=== PATIENT | male | born 1960 | race Caucasian/White ===

== ENCOUNTER 2023-10-11 12:19 | Inpatient (IN) | payer BC, OTHER ==
[2023-10-11] VITALS (11 sets, daily range): BP systolic 118–164; BP diastolic 74–86; PULSE 70–76; RESP 14–18; TEMP 96.7–98.1; O2SAT 93–99
[~2023-10-11] VITALS: Ht 167.6 cm; Wt 93.5 kg
[2023-10-11 13:14] LABS: BASOPHILS # (AUTO) 0.1 X10'3 (0-0.2); BASOPHILS % (AUTO) 0.6 % (0-1); EOSINOPHILS # (AUTO) 0.3 X10'3 (0-0.9); EOSINOPHILS % (AUTO) 1.9 % (0-6); HEMATOCRIT 40.9 % (42.0-52.0); HEMOGLOBIN 13.7 g/dl (14.0-17.9); LYMPHOCYTES % (AUTO) 15.5 % (21-51); MEAN CORPUSCULAR HEMOGLOBIN 28.8 PG (27.0-31.0); MEAN CORPUSCULAR HGB CONC 33.5 g/dL (33.0-36.5); MEAN PLATELET VOLUME 8.8 FL (7.4-10.4); MONOCYTES # (AUTO) 1.5 X10'3 (0-0.9); MONOCYTES % (AUTO) 11.4 % (2-12); NEUTROPHILS # (AUTO) 9.1 X10'3 (1.8-7.7); NEUTROPHILS % (AUTO) 70.6 % (42-75); PLATELET COUNT 210 X10'3 (140-440); RED BLOOD COUNT 4.75 X10'6 (4.70-6.10); RED CELL DISTRIBUTION WIDTH 14.7 % (11.5-14.5); WHITE BLOOD COUNT 12.9 X10'3 (4.5-11.0)
[2023-10-11 13:27] LABS: ALANINE AMINOTRANSFERASE 39 U/L (12-78); ALBUMIN 3.1 G/DL (3.4-5.0); ALBUMIN/GLOBULIN RATIO 0.6 (1.1-1.5); ALKALINE PHOSPHATASE 126 IU/L (46-116); ANION GAP 12 (8-16); ASPARTATE AMINO TRANSFERASE 22 U/L (10-37); BILIRUBIN,TOTAL 1.1 MG/DL (0.1-1.0); BLOOD UREA NITROGEN 39 MG/DL (7-18); BUN/CREATININE RATIO 24.4 (10.0-20.0); CHLORIDE 99 MMOL/L (99-107); GLUCOSE 81 MG/DL (70-104); LIPASE 30 U/L (16-77); POTASSIUM 4.1 MMOL/L (3.5-5.1); SODIUM 134 MMOL/L (135-145); TOTAL CARBON DIOXIDE 23.5 MMOL/L (24-32); TOTAL PROTEIN 8.1 G/DL (6.4-8.2); eCRCL 44 ML/MIN; eGFR 44 ML/MIN
[2023-10-11 14:03] LABS: BILIRUBIN,URINE SMALL (Neg); CLARITY,URINE CLEAR (Clear); COLOR,URINE YELLOW (Yellow); GLUCOSE, URINE NEGATIVE (Neg); KETONES,URINE 15 mg/dl (Neg); LEUKOCYTE ESTERASE ,URINE NEGATIVE (Neg); NITRITES, URINE NEGATIVE (Neg); OCCULT BLOOD,URINE NEGATIVE (Neg); PROTEIN,URINE NEGATIVE (Neg)
[2023-10-11 14:11] LABS: UA COLLECTION TYPE CLN CATCH MIDSTREAM
[2023-10-11] MEDS: normal saline 1000ML IV soln IVB ONE (16:53)
[2023-10-11] MEDS: morphine 2 MG/ML inj. syringe IV PRN ×2 (16:53→23:50)
[2023-10-11] MEDS: ondansetron/PF 4mg/2ml inj IV ONE (16:54)
[2023-10-11] MEDS: piperacillin/tazo 3.375gm/50ml 50 ML IV ONE (17:39)
[2023-10-11] MEDS ORDERED: potassium Cl 40MEQ/1/2NS 520ml 520 ML IV PRN (18:15)
[2023-10-11] MEDS ORDERED: potassium Cl 20 mEq SR tablet PO PRN ×2 (18:15)
[2023-10-11] MEDS ORDERED: magnesium 2GM in 50ml NS 50 ML IV PRN (18:15)
[2023-10-11] MEDS ORDERED: acetaminophen 325mg tablet PO PRN (18:15)
[2023-10-11] MEDS ORDERED: magnesium hydroxide 30ml (MOM) UD suspension PO PRN (18:15)
[2023-10-11] MEDS ORDERED: magnesium 4gm in 100ml NS 100 ML IV PRN (18:15)
[2023-10-11] MEDS ORDERED: ondansetron/PF 4mg/2ml inj IV PRN ×3 (18:15→21:05)
[2023-10-11] MEDS ORDERED: magnesium Cl slow-release 64mg tablet PO PRN (18:15)
[2023-10-11] MEDS ORDERED: mag hydrox/Alum hydrox/simeth 30ml oral suspension PO PRN (18:15)
[2023-10-11] MEDS ORDERED: morphine 2 MG/ML inj. syringe IV PRN (18:45)
[2023-10-11] MEDS ORDERED: fentaNYL/PF 50MCG/1 ML 2ML syringe IV PRN (18:45)
[2023-10-11] MEDS ORDERED: hydrALAZINE 20mg/ml inj. IV PRN (18:45)
[2023-10-11] MEDS ORDERED: labetalol 20mg/4ml (5mg/ml) syringe IV PRN (18:45)
[2023-10-11] MEDS ORDERED: BUPIVAcaine 2.5mg/ml inj 50ml vial (contains preservative) ONE (18:48)
[2023-10-11] MEDS ORDERED: sevoflurane 250ml liquid IH ONE (19:35)
[2023-10-11] MEDS ORDERED: LIDOcaine 2% (20mg/ml) 5ml vial ONE (19:48)
[2023-10-11] MEDS ORDERED: propofol inj 20 ML IV ONE (19:48)
[2023-10-11] MEDS ORDERED: ondansetron/PF 4mg/2ml inj ONE (19:49)
[2023-10-11] MEDS ORDERED: rocuronium 10mg/ml inj IV ONE (19:49)
[2023-10-11] MEDS ORDERED: fentaNYL/PF 50MCG/1 ML 2ML syringe ONE (19:50)
[2023-10-11] MEDS ORDERED: sugammadex 200mg/2ml injection IV ONE (19:50)
[2023-10-11] MEDS: morphine 4 MG/ML inj SYRINge IV PRN (21:00)
[2023-10-11] MEDS ORDERED: naloxone 0.4 mg/ml inj IV PRN (21:05)
[2023-10-11] MEDS ORDERED: HYDROmorphone inj. 0.5 MG/0.5 ML DISP.SYRIN SQ PRN (21:05)
[2023-10-11] MEDS ORDERED: HYDROcodone/acetaminophen 10/325mg tab PO PRN (21:05)
[2023-10-11] MEDS: bupivacaine (with preservative) 5 mg/ml inj. 50ml IJ ONE (21:10)
[2023-10-11] MEDS: fentaNYL/PF 50MCG/1 ML 2ML syringe IV PRN (21:11)
[2023-10-11] MEDS: dextrose 5%-1/2 normal saline 1,000 ML IV SCH (21:48)
[2023-10-11] MEDS: K and/or MAG REPLACEMENT MC SCH (21:48)
[2023-10-11] MEDS: ringers solution, lacted 1,000 ML IV SCH (21:51)
[2023-10-11] MEDS: docusate sod 100mg capsule PO SCH (21:57)
[2023-10-12] MEDS: piperacillin/tazo 3.375gm/50ml 50 ML IV SCH (00:10)
[2023-10-12] MEDS: temazepam 15mg capsule PO PRN (01:42)
[2023-10-12 06:00] VITALS: BP 125/67; PULSE 70; RESP 14; TEMP 98.1; O2SAT 93
[2023-10-12] MEDS ORDERED: ATOR20TA66 PO (07:20)
[2023-10-12] MEDS ORDERED: OLME20TA69 PO (07:20)
[2023-10-12 07:35] VITALS: RESP 16; O2SAT 94
[2023-10-12 08:45] LABS: ALANINE AMINOTRANSFERASE 31 U/L (12-78); ALBUMIN 2.8 G/DL (3.4-5.0); ALBUMIN/GLOBULIN RATIO 0.6 (1.1-1.5); ALKALINE PHOSPHATASE 101 IU/L (46-116); ANION GAP 8 (8-16); ASPARTATE AMINO TRANSFERASE 15 U/L (10-37); BILIRUBIN,TOTAL 0.6 MG/DL (0.1-1.0); BLOOD UREA NITROGEN 24 MG/DL (7-18); BUN/CREATININE RATIO 18.6 (10.0-20.0); CALCIUM 8.6 MG/DL (8.5-10.1); CHLORIDE 101 MMOL/L (99-107); CREATININE 1.29 MG/DL (0.60-1.10); GLUCOSE 190 MG/DL (70-104); MAGNESIUM 2.3 MG/DL (1.5-2.4); POTASSIUM 4.8 MMOL/L (3.5-5.1); SODIUM 134 MMOL/L (135-145); TOTAL CARBON DIOXIDE 24.7 MMOL/L (24-32); TOTAL PROTEIN 7.3 G/DL (6.4-8.2); eCRCL 54 ML/MIN; eGFR 57 ML/MIN
[2023-10-12] MEDS: atorvastatin 20mg tablet PO SCH (08:56)
[2023-10-12 08:58] LABS: BASOPHILS # (AUTO) 0.1 X10'3 (0-0.2); BASOPHILS % (AUTO) 0.6 % (0-1); EOSINOPHILS % (AUTO) 0.1 % (0-6); HEMATOCRIT 37.9 % (42.0-52.0); HEMOGLOBIN 12.7 g/dl (14.0-17.9); LYMPHOCYTES # (AUTO) 0.6 X10'3 (1.1-4.8); LYMPHOCYTES % (AUTO) 4.3 % (21-51); MEAN CORPUSCULAR HEMOGLOBIN 28.7 PG (27.0-31.0); MEAN CORPUSCULAR HGB CONC 33.6 g/dL (33.0-36.5); MEAN CORPUSCULAR VOLUME 85.6 FL (78-98); MEAN PLATELET VOLUME 8.7 FL (7.4-10.4); MONOCYTES # (AUTO) 0.7 X10'3 (0-0.9); MONOCYTES % (AUTO) 4.8 % (2-12); NEUTROPHILS # (AUTO) 12.9 X10'3 (1.8-7.7); NEUTROPHILS % (AUTO) 90.2 % (42-75); PLATELET COUNT 197 X10'3 (140-440); RED BLOOD COUNT 4.43 X10'6 (4.70-6.10); RED CELL DISTRIBUTION WIDTH 14.7 % (11.5-14.5); WHITE BLOOD COUNT 14.3 X10'3 (4.5-11.0)
[2023-10-12] MEDS: losartan 50mg tablet PO SCH (08:59)
[2023-10-12 11:00] VITALS: BP 125/73; PULSE 74; RESP 15; TEMP 98.1; O2SAT 95
[2023-10-12] MEDS ORDERED: oxyCODONE IR 5mg (immed. release) tablet PO PRN (11:50)
[2023-10-12] MEDS: enoxaparin 40mg/0.4ml syringe SUBCUT SCH (11:55)
[2023-10-12 12:30] VITALS: RESP 16; O2SAT 95
[2023-10-12] MEDS: ringers solution, lacted 1,000 ML IV SCH (12:30)
[2023-10-12] MEDS: oxyCODONE IR 5mg (immed. release) tablet PO PRN (13:56)
[2023-10-12 20:00] VITALS: RESP 16
[2023-10-12 22:00] VITALS: BP 119/70; PULSE 56; RESP 14; TEMP 98.6; O2SAT 95
[2023-10-13 05:53] LABS: BASOPHILS % (AUTO) 0 % (0-1); EOSINOPHILS % (AUTO) 0 % (0-6); HEMATOCRIT 36.4 % (42.0-52.0); HEMOGLOBIN 12.2 g/dl (14.0-17.9); LYMPHOCYTES % (AUTO) 8.4 % (21-51); MEAN CORPUSCULAR HEMOGLOBIN 29.1 PG (27.0-31.0); MEAN CORPUSCULAR HGB CONC 33.4 g/dL (33.0-36.5); MEAN CORPUSCULAR VOLUME 87.1 FL (78-98); MONOCYTES # (AUTO) 0.8 X10'3 (0-0.9); MONOCYTES % (AUTO) 6.7 % (2-12); NEUTROPHILS # (AUTO) 10.6 X10'3 (1.8-7.7); NEUTROPHILS % (AUTO) 84.9 % (42-75); PLATELET COUNT 211 X10'3 (140-440); RED BLOOD COUNT 4.18 X10'6 (4.70-6.10); WHITE BLOOD COUNT 12.5 X10'3 (4.5-11.0)
[2023-10-13 06:14] LABS: ALANINE AMINOTRANSFERASE 28 U/L (12-78); ALBUMIN 2.7 G/DL (3.4-5.0); ALBUMIN/GLOBULIN RATIO 0.6 (1.1-1.5); ALKALINE PHOSPHATASE 90 IU/L (46-116); ANION GAP 9 (8-16); ASPARTATE AMINO TRANSFERASE 18 U/L (10-37); BILIRUBIN,TOTAL 0.4 MG/DL (0.1-1.0); BLOOD UREA NITROGEN 22 MG/DL (7-18); BUN/CREATININE RATIO 16.8 (10.0-20.0); CALCIUM 8.8 MG/DL (8.5-10.1); CHLORIDE 103 MMOL/L (99-107); CREATININE 1.31 MG/DL (0.60-1.10); GLUCOSE 125 MG/DL (70-104); MAGNESIUM 2.5 MG/DL (1.5-2.4); POTASSIUM 4.4 MMOL/L (3.5-5.1); SODIUM 138 MMOL/L (135-145); TOTAL CARBON DIOXIDE 25.8 MMOL/L (24-32); TOTAL PROTEIN 7.1 G/DL (6.4-8.2); eCRCL 53 ML/MIN; eGFR 56 ML/MIN
[2023-10-13 07:00] VITALS: BP 129/69; PULSE 59; RESP 18; TEMP 98; O2SAT 94
[2023-10-13 10:00] VITALS: BP 138/71; PULSE 65; RESP 18; TEMP 98; O2SAT 93
[2023-10-13 18:00] VITALS: BP 129/75; PULSE 62; RESP 16; TEMP 97.8; O2SAT 93
[2023-10-13 18:30] VITALS: BP 129/75; PULSE 62; RESP 16; TEMP 97.8; O2SAT 95
[2023-10-13 20:00] VITALS: RESP 16
[2023-10-13] MEDS: magnesium hydroxide 30ml (MOM) UD suspension PO SCH (20:34)
[2023-10-13 22:00] VITALS: BP 127/71; PULSE 63; RESP 14; TEMP 97.5; O2SAT 95
[2023-10-14 06:00] VITALS: BP 110/76; PULSE 64; RESP 12; TEMP 97.6; O2SAT 96
[2023-10-14 06:29] LABS: BASOPHILS % (AUTO) 0.5 % (0-1); EOSINOPHILS # (AUTO) 0.1 X10'3 (0-0.9); EOSINOPHILS % (AUTO) 1.3 % (0-6); HEMOGLOBIN 12.1 g/dl (14.0-17.9); LYMPHOCYTES # (AUTO) 1.6 X10'3 (1.1-4.8); LYMPHOCYTES % (AUTO) 17.5 % (21-51); MEAN CORPUSCULAR HEMOGLOBIN 29.2 PG (27.0-31.0); MEAN CORPUSCULAR HGB CONC 33.6 g/dL (33.0-36.5); MEAN PLATELET VOLUME 8.6 FL (7.4-10.4); MONOCYTES % (AUTO) 11.3 % (2-12); NEUTROPHILS # (AUTO) 6.3 X10'3 (1.8-7.7); NEUTROPHILS % (AUTO) 69.4 % (42-75); PLATELET COUNT 222 X10'3 (140-440); RED BLOOD COUNT 4.14 X10'6 (4.70-6.10); RED CELL DISTRIBUTION WIDTH 15.4 % (11.5-14.5)
[2023-10-14 06:46] LABS: ALANINE AMINOTRANSFERASE 28 U/L (12-78); ALBUMIN 2.6 G/DL (3.4-5.0); ALBUMIN/GLOBULIN RATIO 0.7 (1.1-1.5); ALKALINE PHOSPHATASE 80 IU/L (46-116); ANION GAP 7 (8-16); ASPARTATE AMINO TRANSFERASE 17 U/L (10-37); BILIRUBIN,TOTAL 0.4 MG/DL (0.1-1.0); BLOOD UREA NITROGEN 18 MG/DL (7-18); CALCIUM 8.6 MG/DL (8.5-10.1); CHLORIDE 105 MMOL/L (99-107); GLUCOSE 88 MG/DL (70-104); MAGNESIUM 2.5 MG/DL (1.5-2.4); POTASSIUM 4.1 MMOL/L (3.5-5.1); SODIUM 138 MMOL/L (135-145); TOTAL CARBON DIOXIDE 26.2 MMOL/L (24-32); TOTAL PROTEIN 6.6 G/DL (6.4-8.2); eCRCL 58 ML/MIN; eGFR 62 ML/MIN
[2023-10-14 08:00] VITALS: RESP 14; O2SAT 99
[2023-10-14 15:00] VITALS: BP 124/70; PULSE 75; RESP 16; TEMP 97.5; O2SAT 95
[2023-10-14] MEDS: morphine 2 MG/ML inj. syringe IV PRN (16:14)
[2023-10-14 19:15] VITALS: BP 108/66; PULSE 96; RESP 18; TEMP 98.4; O2SAT 92
[2023-10-14 19:50] VITALS: RESP 16
[2023-10-14 22:00] VITALS: BP 104/56; PULSE 68; RESP 18; TEMP 98.3; O2SAT 94
[2023-10-15 06:00] VITALS: BP 91/48; PULSE 71; RESP 12; TEMP 97.8; O2SAT 94
[2023-10-15 06:49] LABS: BASOPHILS # (AUTO) 0.1 X10'3 (0-0.2); BASOPHILS % (AUTO) 0.5 % (0-1); EOSINOPHILS # (AUTO) 0.2 X10'3 (0-0.9); EOSINOPHILS % (AUTO) 2.2 % (0-6); HEMATOCRIT 39.9 % (42.0-52.0); HEMOGLOBIN 13.2 g/dl (14.0-17.9); LYMPHOCYTES # (AUTO) 1.8 X10'3 (1.1-4.8); LYMPHOCYTES % (AUTO) 17.2 % (21-51); MEAN CORPUSCULAR HGB CONC 33.2 g/dL (33.0-36.5); MEAN CORPUSCULAR VOLUME 87.5 FL (78-98); MEAN PLATELET VOLUME 8.7 FL (7.4-10.4); MONOCYTES # (AUTO) 1.3 X10'3 (0-0.9); NEUTROPHILS # (AUTO) 7.1 X10'3 (1.8-7.7); NEUTROPHILS % (AUTO) 68.1 % (42-75); PLATELET COUNT 257 X10'3 (140-440); RED BLOOD COUNT 4.56 X10'6 (4.70-6.10); RED CELL DISTRIBUTION WIDTH 15.3 % (11.5-14.5); WHITE BLOOD COUNT 10.5 X10'3 (4.5-11.0)
[2023-10-15 07:03] VITALS: RESP 16
[2023-10-15 07:09] LABS: ALANINE AMINOTRANSFERASE 33 U/L (12-78); ALBUMIN 2.8 G/DL (3.4-5.0); ALBUMIN/GLOBULIN RATIO 0.6 (1.1-1.5); ALKALINE PHOSPHATASE 110 IU/L (46-116); ANION GAP 5 (8-16); ASPARTATE AMINO TRANSFERASE 20 U/L (10-37); BILIRUBIN,TOTAL 0.7 MG/DL (0.1-1.0); BLOOD UREA NITROGEN 16 MG/DL (7-18); BUN/CREATININE RATIO 11.6 (10.0-20.0); CHLORIDE 99 MMOL/L (99-107); CREATININE 1.38 MG/DL (0.60-1.10); GLUCOSE 98 MG/DL (70-104); MAGNESIUM 2.7 MG/DL (1.5-2.4); POTASSIUM 4.4 MMOL/L (3.5-5.1); SODIUM 136 MMOL/L (135-145); TOTAL CARBON DIOXIDE 31.9 MMOL/L (24-32); TOTAL PROTEIN 7.3 G/DL (6.4-8.2); eCRCL 51 ML/MIN; eGFR 52 ML/MIN
[2023-10-15 07:30] VITALS: BP 125/72; PULSE 70; RESP 16; TEMP 98; O2SAT 96
[2023-10-15] MEDS ORDERED: OXYC1TAB17 PO (09:54)
[2023-10-15 10:00] VITALS: BP 102/57; PULSE 77; RESP 17; TEMP 97.2; O2SAT 93
[2023-10-15 10:15] VITALS: BP 101/61; PULSE 71; RESP 16; TEMP 97.8; O2SAT 93
[2023-10-15 10:52] VITALS: RESP 16
== END 2023-10-15 13:15 | disposition home or self-care (01) | DRG 398 ==
LOC: ER 12:20 → ORTHO 4S 18:11 → UNDOADMIN 18:11 → ORTHO 4S 18:15 → SUR 3N 10-12 12:24 → ORTHO 4S 10-12 12:24
PROVIDERS: ADMIT Internal Medicine; ATTEND Internal Medicine
PROC: 8E0W4CZ Robotic Assisted Procedure of Trunk Region, Percutaneous Endoscopic Approach (ICD-10-PCS; 2023-10-11)
PROC: 0DTJ4ZZ Resection of Appendix, Percutaneous Endoscopic Approach (ICD-10-PCS; principal; 2023-10-11 19:35)
DX: K35.32 Acute appendicitis with perforation, localized peritonitis, and gangrene, without abscess (principal); N17.9 Acute kidney failure, unspecified; N18.30 Chronic kidney disease, stage 3 unspecified; I12.9 Hypertensive chronic kidney disease with stage 1 through stage 4 chronic kidney disease, or unspecified chronic kidney disease; E78.00 Pure hypercholesterolemia, unspecified; E66.01 Morbid (severe) obesity due to excess calories; Z68.33 Body mass index [BMI] 33.0-33.9, adult; Z87.891 Personal history of nicotine dependence; Z79.899 Other long term (current) drug therapy
CPT/HCPCS: 99285; Z7506; Z7508; 36415; 74176; 80053; 81003; 83690; 83735; 85025; 87081; A4215; A4314; A4618; A6407; A6449; G0378; J1100; J1650; J2270; J2405; J2543; J2704; J3010; J3490; J7030; J7120

== ENCOUNTER 2023-10-29 09:06 | Outpatient (CLI) | payer BC ==
[~2023-10-29 09:06] MED LIST: ATOR20TA66 PO; OLME20TA69 PO; OXYC1TAB17 PO
== END 2023-10-29 23:59 | disposition home or self-care (01) ==
LOC: RAD 09:06
PROVIDERS: ATTEND Surgery
DX: N28.1 Cyst of kidney, acquired (principal); M72.9 Fibroblastic disorder, unspecified; E87.70 Fluid overload, unspecified; I70.0 Atherosclerosis of aorta; K57.30 Diverticulosis of large intestine without perforation or abscess without bleeding
CPT/HCPCS: 74176